=== PATIENT | male | born 1960 | race Caucasian/White ===

== ENCOUNTER 2019-03-19 09:01 | Inpatient (IN) | payer OTHER ==
[2019-03-19 09:28] VITALS: BMI 24.1
--- NOTE | 2019-03-19 10:38 | HP ---
CIWA Score Nausea/Vomitin Muscle Tremors: 2 Anxiety: 3 Agitation: 3 Paroxysmal Sweats: 1-Minimal Palms Moist Orientation: 0-Oriented Tacttile Disturbances: 1-Very Mild Itch/Numbness Auditory Disturbances: 0-None Visual Disturbances: 0-None Headache: 2-Mild CIWA-Ar Total Score: 14 - Admission Criteria OASAS Guidelines: Admission for Medically Managed Detox: Requires at least one of the followin. CIWA greater than 12 2. Seizures within the past 24 hours 3. Delirium tremens within the past 24 hours 4. Hallucinations within the past 24 hours 5. Acute intervention needed for co occurring medical disorder 6. Acute intervention needed for co occurring psychiatric disorder 7. Severe withdrawal that cannot be handled at a lower level of care (continued vomiting, continued diarrhea, abnormal vital signs) requiring intravenous medication and/or fluids 8. Admission ROS [facility] - HPI Chief Complaint: i need help to stop drinking alcohol Allergies/Adverse Reactions: Allergies Allergy/AdvReac Type Severity Reaction Status Date / Time No Known Allergies Allergy Verified 03/19/19 09:25 History of Present Illness: this 58 years old male with alcohol dependence seeking help,stated driking heavy after the of his in 2017, homeless,frequent black out,had surgery of broin aneurym in 1998 right history of copd an albuterol inhaler no significant period of sobriety would like to go to rehab after detox intoxicate - Ebola screening Have you traveled outside of the country in the last 21 days: No Have you had contact with anyone from an Ebola affected area: No Patient History - Substances abused Alcohol Substance route: Oral Frequency: Daily Amount used: 6 CANS OF 24 OUNCES BEER Age of first use: 8 Date of last use: 03/19/19 [facility] Signs Vital Signs: Vital Signs - 24 hr 03/19/19 03/19/19 09:21 09:54 Temperature 97.2 F L 97.2 F L Pulse Rate 84 84 Respiratory 20 20 Rate Blood Pressure 144/78 144/78 Breathalyzer - Breathalyzer Breathalyzer: 0.236 Urine Drug Screen - Test Device Lot number: [id number] Expiration date: 12/10/20 - Control Is test valid?: Yes - Results Drug screen NEGATIVE: No Urine drug screen results: THC-Marijuana, BZO-Benzodiazepines
--- NOTE | 2019-03-19 10:55 | HP ---
CIWA Score Nausea/Vomitin Muscle Tremors: 2 Anxiety: 3 Agitation: 3 Paroxysmal Sweats: 1-Minimal Palms Moist Orientation: 0-Oriented Tacttile Disturbances: 1-Very Mild Itch/Numbness Auditory Disturbances: 0-None Visual Disturbances: 0-None Headache: 2-Mild CIWA-Ar Total Score: 14 - Admission Criteria OASAS Guidelines: Admission for Medically Managed Detox: Requires at least one of the followin. CIWA greater than 12 2. Seizures within the past 24 hours 3. Delirium tremens within the past 24 hours 4. Hallucinations within the past 24 hours 5. Acute intervention needed for co occurring medical disorder 6. Acute intervention needed for co occurring psychiatric disorder 7. Severe withdrawal that cannot be handled at a lower level of care (continued vomiting, continued diarrhea, abnormal vital signs) requiring intravenous medication and/or fluids 8. Admission ROS [facility] - HPI Chief Complaint: i need help to stop drinking alcohol Allergies/Adverse Reactions: Allergies Allergy/AdvReac Type Severity Reaction Status Date / Time No Known Allergies Allergy Verified 03/19/19 09:25 History of Present Illness: this 58 years old male with alcohol dependence,seeking help,drinking heavily after the daeath of his in 2016, history of frequent black out copd on albuterol inhaler smoke 4 cigarette/day alcohol intoxication homeless denied psychiatric problem had surgery for aneurysm right in 1998 had surgery no significant period of sobriety plan for rehab after detox Exam Limitations: No Limitations - Ebola screening Have you traveled outside of the country in the last 21 days: No Have you had contact with anyone from an Ebola affected area: No - Review of Systems Constitutional: Loss of Appetite, Malaise, Weakness, Unintentional Wgt. Loss EENT: reports: Nose Congestion, Other (scar in right temporal area) Respiratory: reports: No Symptoms reported Cardiac: reports: No Symptoms Reported GI: reports: Nausea, Poor Appetite, Abdominal cramping : reports: No Symptoms Reported Musculoskeletal: reports: Back Pain, Muscle Pain Integumentary: reports: Dryness Neuro: reports: Headache, Tremors Endocrine: reports: No Symptoms Reported Hematology: reports: No Symptoms Reported Psychiatric: reports: No Sypmtoms Reported, Judgement Intact, Mood/Affect Appropiate, Orientated x3 Other Systems: Reviewed and Negative Patient History - Patient Medical History Hx Anemia: No Hx Asthma: No Hx Chronic Obstructive Pulmonary Disease (COPD): Yes (on albuterol inhaler) Hx Cancer: No Hx Cardiac Disorders: No Hx Congestive Heart Failure: No Hx Hypertension: No Hx Hypercholesterolemia: No Hx Pacemaker: No HX Cerebrovascular Accident: No Hx Seizures: No Hx Dementia: No Hx Diabetes: No Hx Gastrointestinal Disorders: No Hx Liver Disease: No Hx Genitourinary Disorders: No Hx Sexually Transmitted Disorders: No Hx Renal Disease (ESRD): No Hx Thyroid Disease: No Hx Human Immunodeficiency Virus (HIV): No (last 2016) Hx Hepatitis C: No Hx Depression: No Hx Suicide Attempt: No Hx Bipolar Disorder: No Hx Schizophrenia: No Other Medical History: no suicidal,no homicidal - Patient Surgical History Past Surgical History: Yes Hx Neurologic Surgery: Yes (brain aneurysm in 1998) - PPD History Previous Implant?: Yes Documented Results: Negative w/o proof Implanted On Prior [facility] Admission?: No PPD to be Administered?: No - Smoking Cessation Smoking history: Current every day smoker Have you smoked in the past 12 months: Yes Aproximately how many cigarettes per day: 4 Cigars Per Day: 0 Hx Chewing Tobacco Use: No Initiated information on smoking cessation: Yes 'Breaking Loose' booklet given: 03/19/19 - Substance & Tx. History Hx Alcohol Use: Yes Hx Substance Use: No Substance Use Type: Alcohol Hx Substance Use Treatment: Yes (2016 did not recall facility) - Substances abused Alcohol Substance route: Oral Frequency: Daily Amount used: 6 CANS OF 24 OUNCES BEER Age of first use: 8 Date of last use: 03/19/19 Family Disease History - Family Disease History Family History: Denies Admission Physical Exam S - Vital Signs Vital Signs: Vital Signs - 24 hr 03/19/19 03/19/19 09:21 09:54 Temperature 97.2 F L 97.2 F L Pulse Rate 84 84 Respiratory 20 20 Rate Blood Pressure 144/78 144/78 - Physical General Appearance: Yes: Mild Distress, Alcohol on Breath, Intoxicated, Sweating HEENTM: Yes: Normal ENT Inspection, NBA, Pharynx Normal Respiratory: Yes: Lungs Clear, Normal Breath Sounds, No Respiratory Distress Neck: Yes: Within Normal Limits, Supple, Trachea in good position Breast: Yes: Within Normal Limits Cardiology: Yes: Within Normal Limits, Regular Rhythm, Regular Rate, S1, S2 Abdominal: Yes: Within Normal Limits, Normal Bowel Sounds, Non Tender, Soft Genitourinary: Yes: Within Normal Limits Back: Yes: Muscle Spasm Musculoskeletal: Yes: Back pain, Muscle Pain Extremities: Yes: Tremors Neurological: Yes: manager medicaid II-XII NML intact, Fully Oriented, Alert, Motor Strength 5/5 Integumentary: Yes: Dry Lymphatic: Yes: Within Normal Limits - Diagnostic (1) Alcohol dependence with uncomplicated withdrawal Current Visit: Yes Status: Acute (2) Alcohol dependence with intoxication Current Visit: Yes Status: Acute (3) Syncope Current Visit: Yes Status: Acute (4) History of brain surgery Current Visit: Yes Status: Acute (5) COPD (chronic obstructive pulmonary disease) Current Visit: Yes Status: Acute (6) Nicotine dependence Current Visit: Yes Status: Acute Cleared for Admission S - Detox or Rehab [facility] Level of Care: Medically Managed Detox Regimen/Protocol: Librium Breathalyzer - Breathalyzer Breathalyzer: 0.236 Urine Drug Screen - Test Device Lot number: [id number] Expiration date: 12/10/20 - Control Is test valid?: Yes - Results Drug screen NEGATIVE: No Urine drug screen results: THC-Marijuana, BZO-Benzodiazepines Inpatient Rehab Admission - Rehab Decision to Admit Inpatient rehab admission?: No
[2019-03-19] MEDS ORDERED: MAG HYDROX/AL HYDROX/SIMETH 30 ML UNIT-DOSE CUP PO PRN (11:10)
[2019-03-19] MEDS ORDERED: METHOCARBAMOL 500 MG TABLET PO PRN (11:10)
[2019-03-19] MEDS ORDERED: BISMUTH SUBSALICYLATE 524 MG/30 ML UD PO PRN (11:10)
[2019-03-19] MEDS ORDERED: chlordiazePOXIDE HCL 25 MG CAPSULE PO PRN (11:10)
[2019-03-19] MEDS ORDERED: ACETAMINOPHEN 325 MG TABLET (FP) PO PRN ×2 (11:10)
[2019-03-19] MEDS ORDERED: MAGNESIUM CITRATE 300 ML BOTTLE PO PRN (11:10)
[2019-03-19] MEDS ORDERED: MENTHOL/PHENOL 1 EACH UD MM PRN (11:10)
[2019-03-19] MEDS ORDERED: MELATONIN 5 MG TABLETS PO PRN (11:10)
[2019-03-19] MEDS ORDERED: MAGNESIUM HYDROX 2400MG/30ML ORAL SUSPENSION 30 ML CUP PO PRN (11:10)
[2019-03-19] MEDS ORDERED: IBUPROFEN 400 MG TABLET (FP) PO PRN (11:10)
[2019-03-19] MEDS ORDERED: hydrOXYzine PAMOATE 25 MG CAPSULE (FP) PO PRN (11:10)
[2019-03-19 15:52] LABS: HEMATOCRIT 42.9 % (35.4-49); HEMOGLOBIN 14.1 GM/dL (11.7-16.9); MCH 34.1 pg (25.7-33.7); MEAN CELL VOLUME 103.3 fl (80-96); MEAN PLT VOLUME 7.9 fl (7.5-11.1); PLATELET COUNT 99 K/MM3 (134-434); RBC 4.15 M/mm3 (4.00-5.60); RDW 17.7 % (11.9-15.9); WHITE BLOOD COUNT 5.8 K/mm3 (4.0-10.0)
[2019-03-19 16:44] LABS: ALBUMIN 3.6 g/dl (3.4-5.0); BILIRUBIN,TOTAL 0.2 mg/dL (0.2-1); BLOOD UREA NITROGEN 7.7 mg/dL (7-18); CREATININE 0.7 mg/dL (0.55-1.3); TOT PROT 7.6 g/dl (6.4-8.2)
[2019-03-19] MEDS: chlordiazePOXIDE HCL 25 MG CAPSULE PO SCH ×2 (17:06→22:03)
[2019-03-19] MEDS ORDERED: THIAMINE HCL 100 MG TABLET (FP) PO SCH (22:00)
[2019-03-19] MEDS: ALBUTEROL SO4 8 GM HFA INHALER IH PRN (23:08)
[2019-03-20] MEDS: chlordiazePOXIDE HCL 25 MG CAPSULE PO SCH ×2 (06:00→11:10)
[2019-03-20] MEDS ORDERED: PRENATAL VITAMINS W/ FOLIC ACID TABLET (FP) PO SCH (10:00)
[2019-03-20] MEDS: ALBUTEROL SO4 8 GM HFA INHALER IH PRN (10:43)
[2019-03-20 13:37] VITALS: BP 126/53; PULSE 62; TEMP 99
--- NOTE | 2019-03-20 13:44 | PN ---
[facility] CIWA - CIWA Score Nausea/Vomitin-Mild Nausea/No Vomiting Muscle Tremors: 3 Anxiety: 3 Agitation: 3 Paroxysmal Sweats: 1-Minimal Palms Moist Orientation: 0-Oriented Tacttile Disturbances: 0-None Auditory Disturbances: 1-Very Mild Visual Disturbances: 0-None Headache: 1-Very Mild CIWA-Ar Total Score: 13 S Progress Note (SOAP) Subjective: tremor anxiety tired trouble concentrate Objective: 03/20/19 13:43 Vital Signs Temperature 99.0 F 03/20/19 13:37 Pulse Rate 62 03/20/19 13:37 Respiratory Rate 18 03/20/19 13:37 Blood Pressure 126/53 L 03/20/19 13:37 O2 Sat by Pulse Oximetry (%) Laboratory Last Values WBC 5.8 K/mm3 (4.0-10.0) 03/19/19 11:20 RBC 4.15 M/mm3 (4.00-5.60) 03/19/19 11:20 Hgb 14.1 GM/dL (11.7-16.9) 03/19/19 11:20 Hct 42.9 % (35.4-49) 03/19/19 11:20 MCV 103.3 fl (80-96) H 03/19/19 11:20 MCH 34.1 pg (25.7-33.7) H 03/19/19 11:20 MCHC 33.0 g/dl (32.0-35.9) 03/19/19 11:20 RDW 17.7 % (11.9-15.9) H 03/19/19 11:20 Plt Count 99 K/MM3 (134-434) L 03/19/19 11:20 MPV 7.9 fl (7.5-11.1) 03/19/19 11:20 Sodium 144 mmol/L (136-145) 03/19/19 11:20 Potassium 4.0 mmol/L (3.5-5.1) 03/19/19 11:20 Chloride 110 mmol/L (98-107) H 03/19/19 11:20 Carbon Dioxide 24 mmol/L (21-32) 03/19/19 11:20 Anion Gap 11 MMOL/L (8-16) 03/19/19 11:20 BUN 7.7 mg/dL (7-18) 03/19/19 11:20 Creatinine 0.7 mg/dL (0.55-1.3) 03/19/19 11:20 Est GFR (CKD-EPI)AfAm 120.56 03/19/19 11:20 Est GFR (CKD-EPI)NonAf 104.02 03/19/19 11:20 Random Glucose 79 mg/dL (74-106) 03/19/19 11:20 Calcium 8.0 mg/dL (8.5-10.1) L 03/19/19 11:20 Total Bilirubin 0.2 mg/dL (0.2-1) 03/19/19 11:20 AST 142 U/L (15-37) H 03/19/19 11:20 ALT 116 U/L (13-61) H 03/19/19 11:20 Alkaline Phosphatase 108 U/L (45-117) 03/19/19 11:20 Total Protein 7.6 g/dl (6.4-8.2) 03/19/19 11:20 Albumin 3.6 g/dl (3.4-5.0) 03/19/19 11:20 RPR Titer Nonreactive (NONREACTIVE) 03/19/19 11:20 HIV 1&2 Ag/Ab, 4th Gen Non reactive (Non Reactive) 03/19/19 11:00 HIV 1&2 Antibody Screen Cancelled 03/19/19 11:20 HIV P24 Antigen Cancelled 03/19/19 11:20 lab noted low plat discontinue motrin ast elevation repeat ast 03/20/19 14:01 Assessment: 03/20/19 14:02 alcohol withdrawal sx Plan: continue alcohol detox
[2019-03-20] MEDS ORDERED: PERMETHRIN 5% TOPICAL CREAM 60 GM TUBE TP ONE (14:15)
--- NOTE | 2019-03-20 16:12 | DS ---
[facility] Detox Discharge Summary Admission Date: 03/19/19 Discharge Date: 03/20/19 - History Present History: Alcohol Dependence Additional Comments: 58 years old male admitted on 03/19/19 for acute alcohol withdrawal sx management through librium shelly regimen patient was doing well with librium showered ate 90% breakfast. patient insists to leave the detox unit for "a cigarette" and "visit daughter" offer nicotine patch and gum as well as phone call to daughter patient refuses the offer patient walks out the unit met with the patient in [facility] patient is alert oriented x 3 no shortness of breathe no dizziness speech coherently clearly steady gait case discuss with team counselor supervisor cutting department and nursing supervisor cutting department with consensus agreement that the patient prefers to terminate the detox regimen and visiting daughter Pertinent Past History: patient prefers to go to [place] his daughter's home and has a cigarette encourage the nurse initiate AMA protocol - Physical Exam Results Vital Signs: Vital Signs Temperature 99.0 F 03/20/19 13:37 Pulse Rate 62 03/20/19 13:37 Respiratory Rate 18 03/20/19 13:37 Blood Pressure 126/53 L 03/20/19 13:37 O2 Sat by Pulse Oximetry (%) Pertinent Admission Physical Exam Findings: alcohol withdrawal sx Vital Signs Temperature 99.0 F 03/20/19 13:37 Pulse Rate 62 03/20/19 13:37 Respiratory Rate 18 03/20/19 13:37 Blood Pressure 126/53 L 03/20/19 13:37 O2 Sat by Pulse Oximetry (%) Laboratory Last Values WBC 5.8 K/mm3 (4.0-10.0) 03/19/19 11:20 RBC 4.15 M/mm3 (4.00-5.60) 03/19/19 11:20 Hgb 14.1 GM/dL (11.7-16.9) 03/19/19 11:20 Hct 42.9 % (35.4-49) 03/19/19 11:20 MCV 103.3 fl (80-96) H 03/19/19 11:20 MCH 34.1 pg (25.7-33.7) H 03/19/19 11:20 MCHC 33.0 g/dl (32.0-35.9) 03/19/19 11:20 RDW 17.7 % (11.9-15.9) H 03/19/19 11:20 Plt Count 99 K/MM3 (134-434) L 03/19/19 11:20 MPV 7.9 fl (7.5-11.1) 03/19/19 11:20 Sodium 144 mmol/L (136-145) 03/19/19 11:20 Potassium 4.0 mmol/L (3.5-5.1) 03/19/19 11:20 Chloride 110 mmol/L (98-107) H 03/19/19 11:20 Carbon Dioxide 24 mmol/L (21-32) 03/19/19 11:20 Anion Gap 11 MMOL/L (8-16) 03/19/19 11:20 BUN 7.7 mg/dL (7-18) 03/19/19 11:20 Creatinine 0.7 mg/dL (0.55-1.3) 03/19/19 11:20 Est GFR (CKD-EPI)AfAm 120.56 03/19/19 11:20 Est GFR (CKD-EPI)NonAf 104.02 03/19/19 11:20 Random Glucose 79 mg/dL (74-106) 03/19/19 11:20 Calcium 8.0 mg/dL (8.5-10.1) L 03/19/19 11:20 Total Bilirubin 0.2 mg/dL (0.2-1) 03/19/19 11:20 AST 142 U/L (15-37) H 03/19/19 11:20 ALT 116 U/L (13-61) H 03/19/19 11:20 Alkaline Phosphatase 108 U/L (45-117) 03/19/19 11:20 Total Protein 7.6 g/dl (6.4-8.2) 03/19/19 11:20 Albumin 3.6 g/dl (3.4-5.0) 03/19/19 11:20 RPR Titer Nonreactive (NONREACTIVE) 03/19/19 11:20 HIV 1&2 Ag/Ab, 4th Gen Non reactive (Non Reactive) 03/19/19 11:00 HIV 1&2 Antibody Screen Cancelled 03/19/19 11:20 HIV P24 Antigen Cancelled 03/19/19 11:20 TB (QFT) Incubation (.) 03/19/19 11:20 TB Test (QFT) Nil 0.04 IU/mL (.) 03/19/19 11:20 TB Test (QFT) Mitogen >10.00 IU/mL (.) 03/19/19 11:20 TB Test (QFT) Antigen 0.05 IU/mL (.) 03/19/19 11:20 TB Test (QFT) Negative (Negative) 03/19/19 11:20 TB Positive Criteria (.) 03/19/19 11:20 lab noted low plat ast elevation - Treatment Patient has Accepted a Rehab Referral to: community support approacb - Medication Discharge Medications: Ambulatory Orders NK [No Known Home Medication] 03/19/19 - Diagnosis (1) Alcohol dependence with intoxication Status: Acute Qualifiers: Complication of substance-induced condition: uncomplicated Qualified Code(s ): F10.220 - Alcohol dependence with intoxication, uncomplicated (2) COPD (chronic obstructive pulmonary disease) Status: Acute Qualifiers: COPD type: emphysema Emphysema type: unspecified Qualified Code(s): J43.9 - Emphysema, unspecified (3) Nicotine dependence Status: Acute Qualifiers: Nicotine product type: cigarettes Substance use status: in withdrawal Qualified Code(s): F17.213 - Nicotine dependence, cigarettes, with withdrawal - AMA Did Patient Leave Against Medical Advice: Yes
[2019-03-21] MEDS ORDERED: chlordiazePOXIDE HCL 25 MG CAPSULE PO SCH (05:00)
[2019-03-22] MEDS ORDERED: chlordiazePOXIDE HCL 10 MG CAPSULE PO PRN
[2019-03-22] MEDS ORDERED: chlordiazePOXIDE HCL 10 MG CAPSULE PO SCH (05:00)
[2019-03-23] MEDS ORDERED: chlordiazePOXIDE HCL 10 MG CAPSULE PO SCH (05:00)
[2019-03-24] MEDS ORDERED: chlordiazePOXIDE HCL 10 MG CAPSULE PO ONE (05:00)
== END 2019-03-20 15:59 | disposition left against medical advice (07) | DRG 770 ==
LOC: YASAS 09:01 → Y3N 12:23
PROVIDERS: ADMIT Surgery; ATTEND Surgery
PROC: HZ2ZZZZ Detoxification Services for Substance Abuse Treatment (ICD-10-PCS; principal; 2019-03-19)
DX: F10.230 Alcohol dependence with withdrawal, uncomplicated (principal); F10.220 Alcohol dependence with intoxication, uncomplicated; F17.210 Nicotine dependence, cigarettes, uncomplicated; R74.0 Nonspecific elevation of levels of transaminase and lactic acid dehydrogenase [LDH]; D69.6 Thrombocytopenia, unspecified; J44.9 Chronic obstructive pulmonary disease, unspecified; Z86.79 Personal history of other diseases of the circulatory system
CPT/HCPCS: 36415; 80053; 85027; 86480; 86593; 87389

== ENCOUNTER 2019-07-28 12:01 | Inpatient (IN) | payer OTHER ==
[2019-07-28 12:23] VITALS: BMI 23.6
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
[2019-07-28] MEDS ORDERED: ACETAMINOPHEN 325 MG TABLET (FP) PO PRN ×2 (13:11)
[2019-07-28] MEDS ORDERED: MAG HYDROX/AL HYDROX/SIMETH 30 ML UNIT-DOSE CUP PO PRN (13:11)
[2019-07-28] MEDS ORDERED: MENTHOL/PHENOL 1 EACH UD MM PRN (13:11)
[2019-07-28] MEDS ORDERED: chlordiazePOXIDE HCL 25 MG CAPSULE PO PRN (13:11)
[2019-07-28] MEDS ORDERED: MELATONIN 5 MG TABLETS PO PRN (13:11)
[2019-07-28] MEDS ORDERED: hydrOXYzine PAMOATE 25 MG CAPSULE (FP) PO PRN (13:11)
[2019-07-28] MEDS ORDERED: MAGNESIUM HYDROX 2400MG/30ML ORAL SUSPENSION 30 ML CUP PO PRN (13:11)
[2019-07-28] MEDS ORDERED: IBUPROFEN 400 MG TABLET (FP) PO PRN (13:11)
[2019-07-28] MEDS ORDERED: METHOCARBAMOL 500 MG TABLET PO PRN (13:11)
[2019-07-28] MEDS ORDERED: MAGNESIUM CITRATE 300 ML BOTTLE PO PRN (13:11)
[2019-07-28] MEDS ORDERED: BISMUTH SUBSALICYLATE 524 MG/30 ML UD PO PRN (13:11)
[2019-07-28] MEDS ORDERED: GABAPENTIN 400 MG CAPSULE (FP) PO SCH (14:00)
[2019-07-28 16:43] LABS: HEMATOCRIT 38.2 % (35.4-49); HEMOGLOBIN 12.9 GM/dL (11.7-16.9); MCH 34.2 pg (25.7-33.7); MCHC 33.7 g/dl (32.0-35.9); MEAN CELL VOLUME 101.4 fl (80-96); MEAN PLT VOLUME 7.1 fl (7.5-11.1); PLATELET COUNT 321 K/MM3 (134-434); RBC 3.76 M/mm3 (4.00-5.60); WHITE BLOOD COUNT 4.8 K/mm3 (4.0-10.0)
[2019-07-28 16:55] LABS: ALBUMIN 3.7 g/dl (3.4-5.0); BILIRUBIN,TOTAL 0.3 mg/dL (0.2-1); BLOOD UREA NITROGEN 7.2 mg/dL (7-18); CALCIUM 8.6 mg/dL (8.5-10.1); CREATININE 0.7 mg/dL (0.55-1.3); TOT PROT 7.7 g/dl (6.4-8.2)
[2019-07-28] MEDS: chlordiazePOXIDE HCL 25 MG CAPSULE PO SCH ×2 (17:15→21:59)
[2019-07-28] MEDS: GABAPENTIN 400 MG CAPSULE (FP) PO SCH (21:51)
[2019-07-28] MEDS: THIAMINE HCL 100 MG TABLET (FP) PO SCH (22:16)
[2019-07-29] MEDS: GABAPENTIN 400 MG CAPSULE (FP) PO SCH ×3 (05:20→22:06)
[2019-07-29] MEDS: chlordiazePOXIDE HCL 25 MG CAPSULE PO SCH ×4 (05:20→22:06)
--- NOTE | 2019-07-29 09:49 | EKG ---
Test Reason : Blood Pressure : / mmHG Vent. Rate : 092 BPM Atrial Rate : 092 BPM P-R Int : 150 ms QRS Dur : 164 ms QT Int : 458 ms P-R-T Axes : 077 -52 -39 degrees QTc Int : 566 ms NORMAL SINUS RHYTHM LEFT BUNDLE BRANCH BLOCK ABNORMAL ECG NO PREVIOUS ECGS AVAILABLE Confirmed by MD Liam, Heraclio ([id number]) on 07/29/2019 9:49:25 AM Referred By: TATE Confirmed By:Heraclio Wheeler MD
[2019-07-29] MEDS: NICOTINE 7 MG/24 HOURS TOPICAL PATCH TD SCH (10:25)
[2019-07-29] MEDS: PRENATAL VITAMINS W/ FOLIC ACID TABLET (FP) PO SCH (10:25)
--- NOTE | 2019-07-29 10:34 | PN ---
S CIWA - CIWA Score Nausea/Vomitin-Mild Nausea/No Vomiting Muscle Tremors: 4-Moderate,w/Arms Extend Anxiety: 3 Agitation: 2 Paroxysmal Sweats: 2 Orientation: 0-Oriented Tacttile Disturbances: 1-Very Mild Itch/Numbness Auditory Disturbances: 0-None Visual Disturbances: 0-None Headache: 2-Mild CIWA-Ar Total Score: 15 BHS Progress Note (SOAP) Subjective: 58 years old male admitted on 07/28/19 for alcohol withdrawal sx management treating with librium detox regimen ate breakfast tolerated food and fluid well resting in bed encourage to attend meetings and groups in the day room Objective: 07/29/19 10:33 Vital Signs Temperature 97.6 F 07/29/19 09:21 Pulse Rate 94 H 07/29/19 09:21 Respiratory Rate 16 07/29/19 09:21 Blood Pressure 124/55 L 07/29/19 09:21 O2 Sat by Pulse Oximetry (%) Laboratory Last Values WBC 4.8 K/mm3 (4.0-10.0) 07/28/19 13:40 RBC 3.76 M/mm3 (4.00-5.60) L 07/28/19 13:40 Hgb 12.9 GM/dL (11.7-16.9) 07/28/19 13:40 Hct 38.2 % (35.4-49) 07/28/19 13:40 MCV 101.4 fl (80-96) H 07/28/19 13:40 MCH 34.2 pg (25.7-33.7) H 07/28/19 13:40 MCHC 33.7 g/dl (32.0-35.9) 07/28/19 13:40 RDW 17.0 % (11.9-15.9) H 07/28/19 13:40 Plt Count 321 K/MM3 (134-434) D 07/28/19 13:40 MPV 7.1 fl (7.5-11.1) L D 07/28/19 13:40 Sodium 142 mmol/L (136-145) 07/28/19 13:40 Potassium 4.0 mmol/L (3.5-5.1) 07/28/19 13:40 Chloride 106 mmol/L (98-107) 07/28/19 13:40 Carbon Dioxide 25 mmol/L (21-32) 07/28/19 13:40 Anion Gap 11 MMOL/L (8-16) 07/28/19 13:40 BUN 7.2 mg/dL (7-18) 07/28/19 13:40 Creatinine 0.7 mg/dL (0.55-1.3) 07/28/19 13:40 Est GFR (CKD-EPI)AfAm 120.56 07/28/19 13:40 Est GFR (CKD-EPI)NonAf 104.02 07/28/19 13:40 Random Glucose 79 mg/dL (74-106) 07/28/19 13:40 Calcium 8.6 mg/dL (8.5-10.1) 07/28/19 13:40 Total Bilirubin 0.3 mg/dL (0.2-1) 07/28/19 13:40 AST 65 U/L (15-37) H 07/28/19 13:40 ALT 67 U/L (13-61) H 07/28/19 13:40 Alkaline Phosphatase 80 U/L (45-117) 07/28/19 13:40 Total Protein 7.7 g/dl (6.4-8.2) 07/28/19 13:40 Albumin 3.7 g/dl (3.4-5.0) 07/28/19 13:40 RPR Titer Nonreactive (NONREACTIVE) 07/28/19 13:40 lab noted Assessment: 07/29/19 10:33 alcohol withdrawal Plan: librium regimen
[2019-07-29] MEDS: THIAMINE HCL 100 MG TABLET (FP) PO SCH (22:06)
[2019-07-30] MEDS: chlordiazePOXIDE HCL 25 MG CAPSULE PO SCH ×4 (06:02→22:10)
[2019-07-30] MEDS: GABAPENTIN 400 MG CAPSULE (FP) PO SCH ×3 (06:02→22:10)
[2019-07-30] MEDS: PRENATAL VITAMINS W/ FOLIC ACID TABLET (FP) PO SCH (10:18)
[2019-07-30] MEDS: NICOTINE 7 MG/24 HOURS TOPICAL PATCH TD SCH (10:19)
--- NOTE | 2019-07-30 10:55 | PN ---
S CIWA - CIWA Score Nausea/Vomitin-Mild Nausea/No Vomiting Muscle Tremors: 4-Moderate,w/Arms Extend Anxiety: 3 Agitation: 2 Paroxysmal Sweats: 1-Minimal Palms Moist Orientation: 0-Oriented Tacttile Disturbances: 0-None Auditory Disturbances: 0-None Visual Disturbances: 0-None Headache: 1-Very Mild CIWA-Ar Total Score: 12 S Progress Note (SOAP) Subjective: 58 years old male admitted on 07/28/19 for alcohol withdrawal sx management treating with librium detox regimen long history of bp elevation health teaching on dietary regimen and self monitoring and follow up with [facility] service Objective: 07/30/19 11:01 Vital Signs Temperature 99.0 F 07/30/19 09:22 Pulse Rate 97 H 07/30/19 09:22 Respiratory Rate 18 07/30/19 09:22 Blood Pressure 124/70 07/30/19 09:22 O2 Sat by Pulse Oximetry (%) Laboratory Last Values WBC 4.8 K/mm3 (4.0-10.0) 07/28/19 13:40 RBC 3.76 M/mm3 (4.00-5.60) L 07/28/19 13:40 Hgb 12.9 GM/dL (11.7-16.9) 07/28/19 13:40 Hct 38.2 % (35.4-49) 07/28/19 13:40 MCV 101.4 fl (80-96) H 07/28/19 13:40 MCH 34.2 pg (25.7-33.7) H 07/28/19 13:40 MCHC 33.7 g/dl (32.0-35.9) 07/28/19 13:40 RDW 17.0 % (11.9-15.9) H 07/28/19 13:40 Plt Count 321 K/MM3 (134-434) D 07/28/19 13:40 MPV 7.1 fl (7.5-11.1) L D 07/28/19 13:40 Sodium 142 mmol/L (136-145) 07/28/19 13:40 Potassium 4.0 mmol/L (3.5-5.1) 07/28/19 13:40 Chloride 106 mmol/L (98-107) 07/28/19 13:40 Carbon Dioxide 25 mmol/L (21-32) 07/28/19 13:40 Anion Gap 11 MMOL/L (8-16) 07/28/19 13:40 BUN 7.2 mg/dL (7-18) 07/28/19 13:40 Creatinine 0.7 mg/dL (0.55-1.3) 07/28/19 13:40 Est GFR (CKD-EPI)AfAm 120.56 07/28/19 13:40 Est GFR (CKD-EPI)NonAf 104.02 07/28/19 13:40 Random Glucose 79 mg/dL (74-106) 07/28/19 13:40 Calcium 8.6 mg/dL (8.5-10.1) 07/28/19 13:40 Total Bilirubin 0.3 mg/dL (0.2-1) 07/28/19 13:40 AST 65 U/L (15-37) H 07/28/19 13:40 ALT 67 U/L (13-61) H 07/28/19 13:40 Alkaline Phosphatase 80 U/L (45-117) 07/28/19 13:40 Total Protein 7.7 g/dl (6.4-8.2) 07/28/19 13:40 Albumin 3.7 g/dl (3.4-5.0) 07/28/19 13:40 RPR Titer Nonreactive (NONREACTIVE) 07/28/19 13:40 lab noted clonidine 0.1 mg po prn for bp elevation Assessment: 07/30/19 11:02 alcohol withdrawal Plan: librium regimen
[2019-07-30] MEDS ORDERED: cloNIDine HCL 0.1 MG TABLET PO PRN (10:58)
[2019-07-30] MEDS: THIAMINE HCL 100 MG TABLET (FP) PO SCH (22:10)
[2019-07-31] MEDS ORDERED: chlordiazePOXIDE HCL 10 MG CAPSULE PO PRN
[2019-07-31] MEDS ORDERED: chlordiazePOXIDE HCL 10 MG CAPSULE PO SCH (05:00)
[2019-07-31] MEDS: GABAPENTIN 400 MG CAPSULE (FP) PO SCH (06:23)
[2019-07-31 06:33] VITALS: TEMP 98.4
[2019-07-31 09:11] VITALS: BP 157/72; PULSE 88
--- NOTE | 2019-07-31 13:11 | DS ---
[facility] Detox Discharge Summary Admission Date: 07/28/19 Discharge Date: 07/31/19 - History Present History: Alcohol Dependence Additional Comments: 58 years old male admitted on 07/28/19 for alcohol withdrawal sx management treated with librium detox regimen patient tolerated well alert oriented x 3 speech clearly coherently ambulating steady gait patient insists to leave the detox unit today instead of estimated discharge date of 08/02/19 bp elevation "my blood pressure always high" health teaching on risks of bp elevation strong recommend the patient follows up with [facility] health service for medication and monitoring Pertinent Past History: encourage the patient return to [facility] - Physical Exam Results Vital Signs: Vital Signs Temperature 98.4 F 07/31/19 09:10 Pulse Rate 88 07/31/19 09:10 Respiratory Rate 16 07/31/19 09:10 Blood Pressure 157/72 07/31/19 09:10 O2 Sat by Pulse Oximetry (%) Pertinent Admission Physical Exam Findings: alcohol withdrawal - Treatment Hospital Course: Detox Protocol Followed, Discharged Condition Good Patient has Accepted a Rehab Referral to: [facility] - Medication Discharge Medications: Ambulatory Orders Aspirin [ASA -] 81 mg PO DAILY 07/28/19 Gabapentin [Neurontin] 800 mg PO QID 07/28/19 - AMA Did Patient Leave Against Medical Advice: Yes
[2019-08-01] MEDS ORDERED: chlordiazePOXIDE HCL 10 MG CAPSULE PO SCH (05:00)
[2019-08-02] MEDS ORDERED: chlordiazePOXIDE HCL 10 MG CAPSULE PO ONE (05:00)
== END 2019-07-31 09:10 | disposition left against medical advice (07) | DRG 894 ==
LOC: YASAS 12:01 → Y3N 13:22
PROVIDERS: ADMIT Allergy & Immunology; ATTEND Allergy & Immunology
PROC: HZ2ZZZZ Detoxification Services for Substance Abuse Treatment (ICD-10-PCS; principal; 2019-07-28)
DX: F10.230 Alcohol dependence with withdrawal, uncomplicated (principal); F10.220 Alcohol dependence with intoxication, uncomplicated; F17.213 Nicotine dependence, cigarettes, with withdrawal; J44.9 Chronic obstructive pulmonary disease, unspecified; M54.5 Low back pain; G89.29 Other chronic pain; Z86.79 Personal history of other diseases of the circulatory system; Z91.048 Other nonmedicinal substance allergy status; Z98.890 Other specified postprocedural states
CPT/HCPCS: 36415; 71046-TC-FY; 80053; 85027; 86593; 93005; 93010